=== PATIENT | female | born 1990 | race Caucasian/White ===

== ENCOUNTER 2024-06-02 10:29 | Emergency (ER) | payer OTHER ==
[~2024-06-02] VITALS: Ht 170.2 cm; Wt 87.6 kg
[2024-06-02 11:36] LABS: BASO # 0.1 10^3/uL (0.0-0.2); BASO % 0.9 % (0.0-1.0); EOS # 0.1 10^3/uL (0.0-0.5); EOS % 1.2 % (0.0-3.0); HEMATOCRIT 39.6 % (36.0-47.0); HEMOGLOBIN 12.9 g/dl (12.0-15.5); LYMPH # 1.7 10^3/uL (1.5-5.0); LYMPH % 21.9 % (24.0-44.0); MEAN CORPUSCULAR HEMOGLOBIN 28.4 pg (27.0-33.0); MEAN CORPUSCULAR HGB CONC 32.6 g/dl (32.0-36.5); MONO # 0.7 10^3/uL (0.0-0.8); MONO % 9.5 % (2.0-8.0); NEUTROPHILS % 66.2 % (36.0-66.0); PLATELET COUNT, AUTOMATED 330 10^3/uL (150-450); RED BLOOD COUNT 4.55 10^6/uL (4.00-5.40); WHITE BLOOD COUNT 7.6 10^3/uL (4.0-10.0)
[2024-06-02 11:57] LABS: LIPASE 28 U/L (12-53)
[2024-06-02 11:59] LABS: ALBUMIN 4.2 G/DL (3.2-5.2); ALKALINE PHOSPHATASE 55 U/L (46-116); ALT/SGPT 26 U/L (7.0-40); AST/SGOT 32 U/L (<34); BILIRUBIN,DIRECT 0.2 MG/DL (<0.4); BILIRUBIN,TOTAL 0.6 MG/DL (0.3-1.2); TOTAL PROTEIN 7.4 G/DL (5.7-8.2)
[2024-06-02 12:16] LABS: HCG, SERUM QUALITATIVE NEGATIVE (NEGATIVE)
[2024-06-02] MEDS: KETOROLAC 30 MG/ML 1ML VIAL IV ONE (12:52)
[2024-06-02] MEDS: MORPHINE 2 MG/ML 1ML VIAL IV ONE (13:54)
[2024-06-02] MEDS: ONDANSETRON 4MG 2ML VIAL IV ONE (14:00)
[2024-06-02] MEDS: PERCOCET 5MG/325MG TAB PO ONE (14:24)
[2024-06-02] MEDS ORDERED: PERC5TAB12 PO (15:13)
[2024-06-02] MEDS ORDERED: CEFD1CAP9 PO (15:13)
[2024-06-02] MEDS ORDERED: ONDA-282 PO (15:13)
[2024-06-02] MEDS ORDERED: PYRI1TAB5 PO (15:13)
[2024-06-02] MEDS ORDERED: KETO10TAB PO (15:13)
[2024-06-02 15:26] VITALS: BP 157/78; TEMP 98; O2SAT 96
[2024-06-02] MEDS: PHENAZOPYRIDINE 100 MG TAB PO ONE (15:31)
== END 2024-06-02 15:44 | disposition home or self-care (01) ==
LOC: M ED 10:29
DX: N39.0 Urinary tract infection, site not specified (principal); R10.9 Unspecified abdominal pain; Z79.2 Long term (current) use of antibiotics; Z79.899 Other long term (current) drug therapy
CPT/HCPCS: 36415; 74176; 80047; 80076; 81001; 83690; 84703; 85025; 87088; 87186; 96374; 96375; 99284; J1885; J2405

== ENCOUNTER → 2025-04-28 | Outpatient (CLI) | payer OTHER ==
[~2025-04-28] MED LIST: CEFD1CAP9 PO; CEFD300C PO; KETO10TAB PO; ONDA-282 PO; PERC5TAB12 PO; PYRI1TAB5 PO
== END ==
LOC: M WUC 10:18
PROVIDERS: ATTEND Student in an Organized Health Care Education/Training Program
DX: M25.511 Pain in right shoulder (principal)